=== PATIENT | male | born 1980 | race Caucasian/White ===

== ENCOUNTER 2016-12-13 17:53 | Emergency (ER) | payer SELFPAY ==
[~2016-12-13] VITALS: Ht 175.3 cm; Wt 65.8 kg
[2016-12-13] MEDS ORDERED: LORazepam Inj 2mg/ml 1ml IV ONE (18:00)
[2016-12-13 19:51] VITALS: BP 127/66
--- NOTE | 2016-12-13 22:13 | Emergency Room Report ---
History of Present Illness General Chief Complaint: Behavioral Complaint Source: Patient Present Illness HPI The patient is a 36-year-old male in custody presenting for medical clearance due to acting abnormally. The patient refuses to provide any information at this time and states that this is his rights. Allergies: Coded Allergies: UNABLE TO ASSESS (Unverified , 12/13/16) Patient History Past Medical History: see triage record Pertinent Family History: none Reviewed Nursing Documentation: PMH: Agreed, PSxH: Agreed Nursing Documentation-PMH Past Medical History: No Stated History Review of Systems All Other Systems: limited - Pt refuses Physical Exam Vital Signs Date Time Temp Pulse Resp B/P Pulse Ox O2 Delivery O2 Flow Rate FiO2 12/13/16 17:49 98.2 112 16 129/82 98 Room Air Sp02 EP Interpretation: reviewed, normal General Appearance: no apparent distress, alert, GCS 15, non-toxic Head: normocephalic, atraumatic Eyes: bilateral eye PERRL, bilateral eye normal inspection ENT: hearing grossly normal, normal pharynx, no angioedema, normal voice Neck: full range of motion, supple/symm/no masses Respiratory: chest non-tender, lungs clear, normal breath sounds, speaking full sentences Cardiovascular #1: regular rate, rhythm, no edema Gastrointestinal: normal bowel sounds, non tender, soft, non-distended, no guarding, no rebound Musculoskeletal: back normal, gait/station normal, normal range of motion, non- tender Neurologic: alert, responsive, sensory intact, normal gait Psychiatric: anxious Skin: normal color, no rash, warm/dry, well hydrated Lymphatic: no adenopathy Medical Decision Making PA Attestation Dr. Kahn is my supervising physician. Patient management was discussed with my supervising physician Diagnostic Impression: Primary Impression: Behavior disorder ER Course The patient is a 36-year-old male in custody presenting for medical clearance for acting bizarrely PE: Pt is anxious. Refuses to answer any questions. PERRL. EOMI. RRR. No MRG Lungs CTA bilat Abdomen: Normal appearance. Non distended. No ecchymosis. Normal BS. Non TTP. No McBurney point tenderness. No guarding. Skin is warm and dry, no rashes. The patient has refused all questioning and potential treatment. He states that he has right to refuse. The patient is medically cleared and will be discharged in custody. Last Vital Signs Date Time Temp Pulse Resp B/P Pulse Ox O2 Delivery O2 Flow Rate FiO2 12/13/16 19:51 98.2 96 14 127/66 99 Room Air Status: improved Disposition: D/C TO LAW ENFORCEMENT IN CUST Condition: Stable Departure Forms: Nursing Home Clearance Patient Instructions: Aggression Additional Instructions: I discussed my findings with the patient. All questions and concerns have been answered. Treatment and medication compliance have been addressed. I advised the patient that they need to follow up with PMD in 3-5 days. Return to ED if symptoms worsen, new symptoms arise, or if needed for any reason. Patient verbalized understanding of discharge instructions. TIN REYNAGA December 13, 2016 22:13
[2016-12-14] MEDS ORDERED: Haloperidol 5mg/ml Inj ONE (23:13)
== END 2016-12-13 19:51 ==
LOC: EDBD 17:53 → EMR 18:53
DX: F91.9 Conduct disorder, unspecified (principal)
CPT/HCPCS: 99283